=== PATIENT | female | born 2000 | race Caucasian/White ===

== ENCOUNTER 2018-08-28 19:45 | Emergency (ER) | payer BC ==
[~2018-08-28] VITALS: Ht 177.8 cm; Wt 72.7 kg
[2018-08-28 20:41] LABS: BASO % 0.3 % (0.0-2.0); EOS % 0.4 % (0-4.0); GRAN # 6.2 (1.4-6.5); GRAN % 86.1 % (42.2-75.2); HEMATOCRIT 37.7 % (35.0-45.0); HEMOGLOBIN 13.2 g/dl (12.0-15.0); LYMPH # 0.5 (1.2-3.4); LYMPH % 6.6 % (20.0-51.0); MEAN CELL VOLUME 90 fl (80.0-95.0); MEAN CORPUSCULAR HEMOGLOBIN 32 pg (26.0-32.0); MEAN CORPUSCULAR HGB CONC 35 g/dl (33.0-37.0); MEAN PLATELET VOLUME 10.3 fl (7.4-10.4); MONO # 0.5 (0.1-0.6); MONO % 6.3 % (1.7-9.3); PLATELET COUNT 163 K/mm3 (130-400); RED BLOOD COUNT 4.19 M/mm3 (4.10-5.30); REDCELL DISTRIBUTION WIDTH-CV 12.1 % (11.5-14.5)
[2018-08-28] MEDS ORDERED: BACTRIM DS 8001 TAB PO (20:48)
[2018-08-28] MEDS ORDERED: ALDACTONE 100M100 MG PO (20:48)
[2018-08-28 20:52] LABS: ALBUMIN 4.4 gm/dL (3.5-5.0); BILIRUBIN,TOTAL 0.9 mg/dL (0.0-1.0); C-REACTIVE PROTEIN 0.7 mg/dL (0.0-0.9); CREATININE, serum 0.78 mg/dL (0.52-1.25); POTASSIUM 4.1 mmol/L (3.4-5.0); TOTAL PROTEIN 7.1 gm/dL (6.4-8.2)
[2018-08-28] MEDS ORDERED: ZOFRAN ODT4 MG PO (22:06)
[2018-08-28 22:18] VITALS: BP 103/56; PULSE 82; TEMP 99.7
== END 2018-08-28 22:21 | disposition home or self-care (01) ==
LOC: COL.ER 19:45
PROVIDERS: Emergency Medicine
DX: B34.9 Viral infection, unspecified (principal); R11.2 Nausea with vomiting, unspecified
CPT/HCPCS: J1885; J2405; J7030